=== PATIENT | male | born 1945 | race Caucasian/White ===

== ENCOUNTER 2020-02-04 07:27 | Inpatient (IN) ==
[2020-02-04] MEDS ORDERED: Lidocaine -MPF 4% 5 ML AMPUL ONE (07:39)
[2020-02-04] MEDS ORDERED: CeFAZolin Syr 2,000MG/20 ML 2,000 MG/20 ML SYRINGE IVPB ONE (07:44)
[2020-02-04] MEDS ORDERED: *HR* Vasopressin 20 UNIT/ML VIAL ONE (07:45)
[2020-02-04] MEDS ORDERED: Ringers Solution, Lactated 1,000 ML IVC SCH (07:45)
[2020-02-04] MEDS ORDERED: *HR* FentaNYL (PF) 100 MCG/2 ML VIAL ONE (07:55)
[2020-02-04] MEDS ORDERED: *HR* HYDROMORPHONE 2 MG/ML VIAL ONE (07:56)
[2020-02-04] MEDS ORDERED: *HR* Propofol 200 MG/20 ML VIAL IVP ONE (07:56)
[2020-02-04] MEDS ORDERED: *HR* Succinylcholine 200 MG/10 ML VIAL IVP ONE (07:57)
[2020-02-04] MEDS ORDERED: Lidocaine -MPF 2% 2 ML VIAL ONE ×2 (07:57→08:19)
[2020-02-04] MEDS ORDERED: Dexamethasone 4 MG/ML VIAL ONE (07:57)
[2020-02-04] MEDS ORDERED: Ondansetron 4 MG/2 ML VIAL ONE (07:57)
[2020-02-04] MEDS ORDERED: Sugammadex Sodium 200 MG/2 ML VIAL IV ONE (07:57)
[2020-02-04] MEDS ORDERED: *HR* Rocuronium Bromide 50 MG/5 ML VIAL ONE (07:57)
[2020-02-04] MEDS ORDERED: Famotidine 20 MG/2 ML VIAL IVP ONE (08:00)
[2020-02-04] MEDS ORDERED: Acetaminophen IV 1,000 MG/100 ML BAG IVPB ONE (08:00)
[2020-02-04] MEDS ORDERED: Gabapentin 300 MG CAPSULE PO ONE (08:00)
[2020-02-04] MEDS ORDERED: *HR* Magnesium Sulfate 1 GM/2 ML VIAL ONE (09:04)
[2020-02-04] MEDS ORDERED: Ketorolac 30 MG/ML VIAL ONE (09:33)
[2020-02-04] MEDS ORDERED: *HR* HYDROmorphone PF 0.5 MG/0.5 ML SYRINGE IVP PRN (09:51)
[2020-02-04] MEDS ORDERED: Ondansetron 4 MG/2 ML VIAL IVP PRN (09:51)
[2020-02-04] MEDS ORDERED: *HR* OxyCODONE Immed Rel 5 MG TABLET PO PRN (09:51)
[2020-02-04] MEDS ORDERED: Naloxone 0.4 MG/ML INJ ONE (10:26)
[2020-02-04] MEDS ORDERED: *HR* HYDROcodone/Acet 5/325 mg TABLET PO PRN (11:33)
[2020-02-04] MEDS ORDERED: Naloxone 0.4 MG/ML INJ IVP PRN (11:33)
[2020-02-04] MEDS ORDERED: Loratadine 10 MG TABLET PO PRN (11:33)
[2020-02-04] MEDS ORDERED: Ipratropium/Albuterol Neb 3 ML ONE (11:37)
[2020-02-04] MEDS: Ipratropium/Albuterol Neb 3 ML IH SCH ×4 (12:12→23:02)
[2020-02-04] MEDS: 0.9 % Sodium Chloride 1,000 ML IVC SCH (12:42)
[2020-02-04] MEDS: *HR* Heparin 5,000 UNIT/ML VIAL SQ SCH ×2 (12:42→21:07)
[2020-02-04] MEDS: Ketorolac 15 MG/ML VIAL IVP SCH ×2 (12:42→17:45)
[2020-02-04] MEDS: Gabapentin 300 MG CAPSULE PO SCH ×2 (15:23→21:07)
[2020-02-04] MEDS: Famotidine 20 MG TABLET PO SCH (21:07)
[2020-02-04] MEDS: Sennosides/Docusate Sodium TABLET PO SCH (21:07)
[2020-02-05] MEDS: 0.9 % Sodium Chloride 1,000 ML IVC SCH (00:48)
[2020-02-05] MEDS: Ketorolac 15 MG/ML VIAL IVP SCH ×2 (00:48→06:20)
[2020-02-05] MEDS: Ipratropium/Albuterol Neb 3 ML IH SCH ×6 (03:18→23:58)
[2020-02-05 03:32] LABS: Mean Corpuscular HGB Conc 33.3 g/dL (31.6-35.5); Mean Corpuscular Volume 93.1 fL (83.0-100.0); Mean Platelet Volume 10.4 fL (9.4-12.4); Platelet Count 131 K/mcL (140-400); Red Blood Count 4.51 M/mcL (4.19-5.50); Red Cell Distribution Width 11.7 % (11.5-14.5)
[2020-02-05 03:41] LABS: % Iron Saturation 12 % (20-55); BUN/Creatinine Ratio 16 (6-26); Blood Urea Nitrogen 21 mg/dL (8-23); Calcium 8.9 mg/dL (8.6-10.3); Carbon Dioxide 19 mEq/L (23-29); Chloride 101 mEq/L (98-107); Glucose 290 mg/dL (70-105); Iron 36 mcg/dL (65-175); Magnesium 2.2 mg/dL (1.6-2.6); Osmolality,Calculated 288 (280-300); Potassium 3.6 mEq/L (3.5-5.1); Sodium 132 mEq/L (136-145); Transferrin 215 mg/dL (203-362); eGFR For African Americans > 60 (> 60); eGFR For Non-African Americans 53 (> 60)
[2020-02-05] MEDS: *HR* Heparin 5,000 UNIT/ML VIAL SQ SCH ×3 (06:20→20:11)
[2020-02-05] MEDS: Aspirin 81 MG TAB.CHEW PO SCH (09:25)
[2020-02-05] MEDS: Sennosides/Docusate Sodium TABLET PO SCH ×2 (09:25→20:11)
[2020-02-05] MEDS: Gabapentin 300 MG CAPSULE PO SCH ×3 (09:25→20:11)
[2020-02-05] MEDS: Famotidine 20 MG TABLET PO SCH ×2 (09:25→20:11)
[2020-02-05] MEDS: lisinopriL 10 MG TABLET PO SCH (09:25)
[2020-02-06] MEDS: Ipratropium/Albuterol Neb 3 ML IH SCH ×6 (03:56→23:46)
[2020-02-06] MEDS: *HR* Heparin 5,000 UNIT/ML VIAL SQ SCH ×3 (06:10→21:17)
[2020-02-06 07:18] LABS: BUN/Creatinine Ratio 19 (6-26); Blood Urea Nitrogen 19 mg/dL (8-23); Calcium 9.4 mg/dL (8.6-10.3); Carbon Dioxide 26 mEq/L (23-29); Chloride 107 mEq/L (98-107); Glucose 146 mg/dL (70-105); Osmolality,Calculated 293 (280-300); Potassium 4.5 mEq/L (3.5-5.1); Sodium 139 mEq/L (136-145); eGFR For African Americans > 60 (> 60); eGFR For Non-African Americans > 60 (> 60)
[2020-02-06] MEDS: Sennosides/Docusate Sodium TABLET PO SCH ×2 (07:41→21:17)
[2020-02-06] MEDS: Famotidine 20 MG TABLET PO SCH ×2 (07:41→21:16)
[2020-02-06] MEDS: Gabapentin 300 MG CAPSULE PO SCH ×3 (07:41→21:17)
[2020-02-06] MEDS: Aspirin 81 MG TAB.CHEW PO SCH (07:41)
[2020-02-06] MEDS: lisinopriL 10 MG TABLET PO SCH (07:41)
[2020-02-07] MEDS: Ipratropium/Albuterol Neb 3 ML IH SCH ×6 (03:34→23:44)
[2020-02-07] MEDS: *HR* Heparin 5,000 UNIT/ML VIAL SQ SCH ×3 (05:32→21:06)
[2020-02-07] MEDS: Famotidine 20 MG TABLET PO SCH ×2 (07:16→21:07)
[2020-02-07] MEDS: Aspirin 81 MG TAB.CHEW PO SCH (07:17)
[2020-02-07] MEDS: Gabapentin 300 MG CAPSULE PO SCH ×3 (07:17→21:06)
[2020-02-07] MEDS: Sennosides/Docusate Sodium TABLET PO SCH ×2 (07:17→21:06)
[2020-02-07] MEDS: lisinopriL 10 MG TABLET PO SCH (07:17)
[2020-02-07] MEDS ORDERED: polyethylene glycoL 3350 17 GM POWD.PACK PO PRN (09:11)
[2020-02-08] MEDS: Ipratropium/Albuterol Neb 3 ML IH SCH ×6 (03:45→23:59)
[2020-02-08] MEDS: *HR* Heparin 5,000 UNIT/ML VIAL SQ SCH ×3 (04:37→20:54)
[2020-02-08] MEDS: Famotidine 20 MG TABLET PO SCH ×2 (08:29→20:54)
[2020-02-08] MEDS: Aspirin 81 MG TAB.CHEW PO SCH (08:29)
[2020-02-08] MEDS: lisinopriL 10 MG TABLET PO SCH (08:29)
[2020-02-08] MEDS: Gabapentin 300 MG CAPSULE PO SCH ×3 (08:30→20:54)
[2020-02-08] MEDS: Sennosides/Docusate Sodium TABLET PO SCH ×2 (08:30→20:54)
[2020-02-09] MEDS: Ipratropium/Albuterol Neb 3 ML IH SCH ×3 (04:15→11:27)
[2020-02-09] MEDS: *HR* Heparin 5,000 UNIT/ML VIAL SQ SCH (05:03)
[2020-02-09] MEDS: Aspirin 81 MG TAB.CHEW PO SCH (07:58)
[2020-02-09] MEDS: Gabapentin 300 MG CAPSULE PO SCH (07:58)
[2020-02-09] MEDS: Sennosides/Docusate Sodium TABLET PO SCH (07:58)
[2020-02-09] MEDS: Famotidine 20 MG TABLET PO SCH (07:58)
[2020-02-09] MEDS: lisinopriL 10 MG TABLET PO SCH (07:58)
[2020-02-09 11:17] VITALS: BP 128/78
== END 2020-02-09 12:53 | disposition home or self-care (01) | DRG 167 ==
LOC: SAMDAY 07:27 → 2NNU 11:25
PROVIDERS: ADMIT Thoracic Surgery (Cardiothoracic Vascular Surgery); ATTEND Thoracic Surgery (Cardiothoracic Vascular Surgery)